=== PATIENT | female | born 1965 | race Caucasian/White ===

== ENCOUNTER → 2017-08-05 | Outpatient (CLI) | payer OTHER | LOC: CIMAGING 08:17 | PROVIDERS: ATTEND Nurse Practitioner | DX: D25.1 Intramural leiomyoma of uterus (principal) | CPT/HCPCS: 76856-PO ==

== ENCOUNTER → 2018-05-03 | Outpatient (CLI) | payer OTHER | LOC: FIMAGING 08:58 | PROVIDERS: ATTEND Nurse Practitioner | DX: Z12.31 Encounter for screening mammogram for malignant neoplasm of breast (principal) ==

== ENCOUNTER 2018-09-07 15:13 | Emergency (ER) | payer OTHER ==
[2018-09-07] MEDS ORDERED: ASPIRIN 81 MG CHEWABLE TAB PO ONE (15:42)
--- NOTE | 2018-09-07 15:46 | EDPHY ---
H & P Stated Complaint: CP Time Seen by Provider: 09/07/18 15:26 HPI/ROS: CHIEF COMPLAINT: Chest pain HISTORY OF PRESENT ILLNESS: Patient is a 53-year-old healthy female who comes to the emergency department after 4 days of chest pain type symptoms. She states originally it began with pain in her right wrist that she thought was maybe arthritis although she has never had arthritis before. It then spread to her armpits 3 days ago and over the last 2 days has also involved her chest. She describes it as a twinging sensation in her her armpits and a heaviness in her chest that tend to last for about an hour and then resolved spontaneously. She has several episodes each day. Does not correlate with exertion or eating or positioning or movement. No fevers. No sore throat. No shortness of breath. She reports a dry cough but states that is baseline since she moved to [place]. No GI symptoms. No heartburn. She does have a history of a patent foramen ovale. Severity: Moderate Modifying factors: None currently asymptomatic REVIEW OF SYSTEMS: Constitutional: denies: chills, fever, recent illness, recent injury EENTM: denies: blurred vision, double vision, nose congestion Respiratory: denies: cough, shortness of breath Cardiac: See HPI denies: irregular heart rate, lightheadedness, palpitations Gastrointestinal/Abdominal: denies: abdominal pain, diarrhea, nausea, vomiting, blood streaked stools Genitourinary: denies: dysuria, frequency, hematuria, pain Musculoskeletal: denies: joint pain, muscle pain Skin: denies: lesions, rash, jaundice, bruising Neurological: denies: headache, numbness, paresthesia, tingling, dizziness, weakness Hematologic/Lymphatic: denies: blood clots, easy bleeding, easy bruising Immunologic/allergic: denies: HIV/AIDS, transplant 10 systems reviewed and negative except as noted EXAM: GENERAL: Well-appearing, well-nourished and in no acute distress. HEAD: Atraumatic, normocephalic. EYES: Pupils equal round and reactive to light, extraocular movements intact, sclera anicteric, conjunctiva are normal. ENT: TMs normal, nares patent, oropharynx clear without exudates. Moist mucous membranes. NECK: Normal range of motion, supple without lymphadenopathy or JVD. LUNGS: Breath sounds clear to auscultation bilaterally and equal. No wheezes rales or rhonchi. HEART: Regular rate and rhythm without murmurs, rubs or gallops. ABDOMEN: Soft, nontender, normoactive bowel sounds. No guarding, no rebound. No masses appreciated. BACK: No CVA tenderness, no spinal tenderness, step-offs or deformities EXTREMITIES: Normal range of motion, no pitting or edema. No clubbing or cyanosis. No worsening in pain with movement of her wrist or arms. NEUROLOGICAL: Cranial nerves II through XII grossly intact. Normal speech, normal gait. 5/5 strength, normal movement in all extremities, normal sensation , normal reflexes PSYCH: Normal mood, normal affect. SKIN: Warm, dry, normal turgor, no visible rashes or lesions. Source: Patient, Family Exam Limitations: No limitations - Personal History Current Tetanus/Diphtheria Vaccine: Yes Current Tetanus Diphtheria and Acellular Pertussis (TDAP): Yes - Medical/Surgical History Hx Asthma: No Hx Chronic Respiratory Disease: No Hx Diabetes: No Hx Cardiac Disease: No Hx Renal Disease: No Hx Cirrhosis: No Hx Alcoholism: No Hx HIV/AIDS: No Hx Splenectomy or Spleen Trauma: No Other PMH: PFO - Family History Significant Family History: No pertinent family hx - Social History Smoking Status: Never smoked Alcohol Use: Sober Drug Use: None Constitutional: Initial Vital Signs Temperature (C) 37.1 C 09/07/18 15:17 Heart Rate 99 09/07/18 15:17 Respiratory Rate 16 09/07/18 15:17 Blood Pressure 166/111 H 09/07/18 15:17 O2 Sat (%) 97 09/07/18 15:17 O2 Delivery Mode Room Air Allergies/Adverse Reactions: No Known Allergies Allergy (Unverified 09/07/18 15:17) Home Medications: Medication Instructions Recorded Bcp 09/07/18 Medical Decision Making - Diagnostics EKG Interpretation: An EKG obtained and was read and documented in trace view. Please see trace view for full reading and report. Sinus rhythm, no acute ischemic changes Imaging Results: Imaging Impressions Chest X-Ray 09/07/18 15:24 Impression: Normal. Imaging: Discussed imaging studies w/ tobacco stripper hand Radiologist ED Course/Re-evaluation: 4:30 p.m. We discussed the lab and imaging results. The patient is very reassured. She is still asymptomatic. I offered observation and repeat troponin but she declines. She would prefer to go home. I will refer her to Cardiology. Engaged her and her partner in shared decision making process. Differential Diagnosis: Partial list of the Differential diagnosis considered include but were not limited to; acute coronary disease, muscular pain, anxiety, GERD and although unlikely based on the history and physical exam, I also considered PE, pneumothorax, pneumonia, dissection, aneurysm. I discussed these differential diagnoses and the plan with the patient as well as the usual and expected course. The patient understands that the diagnosis is provisional and that in medicine we are not always correct and that further workup is often warranted. Usual and customary warnings were given. All of the patient's questions were answered. The patient was instructed to return to the emergency department should the symptoms at all worsen or return, otherwise to followup with the physician as we discussed. - Data Points Laboratory Results: Laboratory Results 09/07/18 Unknown 09/07/18 15:40 09/07/18 09/07/18 09/07/18 Unknown 15:48 15:40 WBC 5.84 10^3/uL 10^3/uL (3.80-9.50) RBC 4.46 10^6/uL 10^6/uL (4.18-5.33) Hgb 13.5 g/dL g/dL (12.6-16.3) Hct 39.3 % % (38.0-47.0) MCV 88.1 fL fL (81.5-99.8) MCH 30.3 pg pg (27.9-34.1) MCHC 34.4 g/dL g/dL (32.4-36.7) RDW 12.1 % % (11.5-15.2) Plt Count 267 10^3/uL 10^3/uL (150-400) MPV 9.3 fL fL (8.7-11.7) Neut % (Auto) 61.7 % % (39.3-74.2) Lymph % (Auto) 30.8 % % (15.0-45.0) [place] % (Auto) 6.8 % % (4.5-13.0) Eos % (Auto) 0.5 % L % (0.6-7.6) Baso % (Auto) 0.2 % L % (0.3-1.7) Nucleat RBC Rel Count 0.0 % % (0.0-0.2) Absolute Neuts (auto) 3.60 10^3/uL 10^3/uL (1.70-6.50) Absolute Lymphs (auto) 1.80 10^3/uL 10^3/uL (1.00-3.00) Absolute Monos (auto) 0.40 10^3/uL 10^3/uL (0.30-0.80) Absolute Eos (auto) 0.03 10^3/uL 10^3/uL (0.03-0.40) Absolute Basos (auto) 0.01 10^3/uL L 10^3/uL (0.02-0.10) Absolute Nucleated RBC 0.00 10^3/uL 10^3/uL (0-0.01) Immature Gran % 0.0 % % (0.0-1.1) Immature Gran # 0.00 10^3/uL 10^3/uL (0.00-0.10) PT INR APTT D-Dimer Sodium Potassium Chloride Carbon Dioxide Anion Gap BUN Creatinine Estimated GFR Glucose Calcium Total Bilirubin Conjugated Bilirubin Unconjugated Bilirubin AST ALT Alkaline Phosphatase Creatine Kinase CK-MB (CK-2) Fraction POC Troponin I 0.00 ng/mL ng/mL (0.00-0.08) Total Protein Albumin Lipase Beta HCG, Qual NEGATIVE 09/07/18 09/07/18 15:40 15:40 WBC RBC Hgb Hct MCV MCH MCHC RDW Plt Count MPV Neut % (Auto) Lymph % (Auto) [place] % (Auto) Eos % (Auto) Baso % (Auto) Nucleat RBC Rel Count Absolute Neuts (auto) Absolute Lymphs (auto) Absolute Monos (auto) Absolute Eos (auto) Absolute Basos (auto) Absolute Nucleated RBC Immature Gran % Immature Gran # PT 13.6 SEC SEC (12.0-15.0) INR 1.02 (0.83-1.16) APTT 29.6 SEC SEC (23.0-38.0) D-Dimer 0.33 ug/mLFEU ug/mLFEU (0.00-0.50) Sodium 138 mEq/L mEq/L (135-145) Potassium 4.1 mEq/L mEq/L (3.3-5.0) Chloride 102 mEq/L mEq/L (97-110) Carbon Dioxide 25 mEq/l mEq/l (22-31) Anion Gap 11 mEq/L mEq/L (6-14) BUN 10 mg/dL mg/dL (7-23) Creatinine 0.7 mg/dL mg/dL (0.6-1.0) Estimated GFR > 60 Glucose 110 mg/dL H mg/dL (70-100) Calcium 10.1 mg/dL mg/dL (8.5-10.4) Total Bilirubin 1.2 mg/dL mg/dL (0.1-1.4) Conjugated Bilirubin 0.1 mg/dL mg/dL (0.0-0.5) Unconjugated Bilirubin 1.1 mg/dL mg/dL (0.0-1.1) AST 29 IU/L IU/L (14-46) ALT 38 IU/L IU/L (9-52) Alkaline Phosphatase 57 IU/L IU/L (38-126) Creatine Kinase 60 IU/L IU/L (0-156) CK-MB (CK-2) Fraction 1.05 ng/mL ng/mL (0.00-4.55) POC Troponin I Total Protein 7.8 g/dL g/dL (6.3-8.2) Albumin 4.7 g/dL g/dL (3.5-5.0) Lipase 105 IU/L IU/L (23-300) Beta HCG, Qual Medications Given: Discontinued Medications Aspirin (Aspirin) 324 mg PO EDNOW ONE Stop: 09/07/18 15:43 Last Admin: 09/07/18 16:10 Dose: 324 mg Point of Care Test Results: Chemistry 09/07/18 15:48 POC Troponin I 0.00 ng/mL ng/mL (0.00-0.08) Departure - Departure Disposition: Home, Routine, Self-Care Clinical Impression: Chest pain Qualifiers: Chest pain type: unspecified Qualified Code(s): R07.9 - Chest pain, unspecified Condition: Fair Instructions: Chest Pain (ED) Referrals: Marcella Siddiqui NP [Primary Care Provider] - As per Instructions Amanda Marks MD [Medical Doctor] - 2-3 days, call for appt.
--- NOTE | 2018-09-07 15:50 | CPEKG ---
Test Reason : OPEN Blood Pressure : / mmHG Vent. Rate : 083 BPM Atrial Rate : 082 BPM P-R Int : 164 ms QRS Dur : 109 ms QT Int : 371 ms P-R-T Axes : 078 -09 061 degrees QTc Int : 436 ms Sinus rhythm Probable anteroseptal infarct, old Confirmed by Marcos Irving ([id number]) on 09/07/2018 3:49:39 PM Referred By: Confirmed By:Marcos Irving
[2018-09-07 16:02] LABS: PLATELET COUNT 267 10^3/uL (150-400)
[2018-09-07 16:13] LABS: CREATINE KINASE 60 IU/L (0-156)
[2018-09-07 16:14] LABS: INR 1.02 (0.83-1.16); PROTIME(PATIENT) 13.6 SEC (12.0-15.0)
[2018-09-07 16:59] VITALS: BP 133/87
== END 2018-09-07 16:58 | disposition home or self-care (01) ==
DX: R07.9 Chest pain, unspecified (principal)
CPT/HCPCS: 84484-PO

== ENCOUNTER → 2018-09-09 | Outpatient (CLI) | payer OTHER ==
[~2018-09-09] MED LIST: IOPAMIDOL (ISOVUE 370) 100 ML BTL IV ONE; LORazepam 0.5 MG TAB PO ONE; METOPROLOL TARTRATE 25 MG TAB PO ONE; METOPROLOL TARTRATE 5 MG/5 ML INJ ONE
== END ==
LOC: FIMAGING 13:10
PROVIDERS: ATTEND Internal Medicine Cardiovascular Disease
DX: R07.9 Chest pain, unspecified (principal); R06.02 Shortness of breath
CPT/HCPCS: Q9967

== ENCOUNTER 2018-09-12 12:31 | Observation (INO) | payer OTHER ==
[2018-09-12] MEDS ORDERED: ASPIRIN EC 325 MG TAB PO ONE ×2 (12:38→13:09)
[2018-09-12] MEDS ORDERED: DIAZEPAM 5 MG TAB PO ONE (12:38)
[2018-09-12] MEDS ORDERED: FAMOTIDINE 20 MG TAB PO ONE (12:38)
[2018-09-12] MEDS ORDERED: diphenhydrAMINE 25 MG CAP PO ONE ×2 (12:38→13:09)
[2018-09-12] MEDS ORDERED: NS 1,000 ML IV ONE (12:38)
[2018-09-12] MEDS ORDERED: DIAZEPAM 5 MG TAB ONE (13:09)
[2018-09-12] MEDS ORDERED: FAMOTIDINE 20 MG TAB ONE (13:09)
[2018-09-12 13:26] LABS: PLATELET COUNT 247 10^3/uL (150-400)
[2018-09-12 13:39] LABS: INR 1.03 (0.83-1.16); PROTIME(PATIENT) 13.7 SEC (12.0-15.0)
--- NOTE | 2018-09-12 13:52 | PDPROPOC ---
Sedation Plan of Care Sedation Plan of Care: vital signs stable, mental status noted, patient educated of risks, benefits, alternatives ASA Classification: ASA 2 Planned drugs: fentanyl, midazolam Mallampati Score: Class 2 Mallampati Reference Image: Patient passed 3-3-2 rule?: Yes
--- NOTE | 2018-09-12 13:53 | PDHPUP ---
History & Physical Update H&P update statement: This history and physical update is based on an assessment of the patient which was completed after admission or registration (within 24 hours), but prior to the surgery/procedure. H&P update: H&P reviewed & patient examined, no change in patient's condition since H&P completed (Pt with further episodes of chest pressure over the weekend. )
[2018-09-12] MEDS ORDERED: LIDOCAINE 1% 300 MG/30 ML SDV ONE (14:05)
[2018-09-12] MEDS ORDERED: fentaNYL 100 MCG/2 ML INJ ONE ×2 (14:05→14:47)
[2018-09-12] MEDS ORDERED: IOPAMIDOL (ISOVUE-370) 150 ML BTL IV ONE (14:06)
[2018-09-12] MEDS ORDERED: MIDAZOLAM 2 MG/2 ML VIAL ONE ×2 (14:06→14:47)
[2018-09-12] MEDS ORDERED: OXYCODONE/APAP 5/325 TAB PO PRN (15:19)
[2018-09-12] MEDS ORDERED: ONDANSETRON 4 MG/2 ML VIAL IVP PRN ×2 (15:19→22:30)
[2018-09-12] MEDS ORDERED: ATROPINE SULFATE 1 MG/10 ML SYR IVP PRN (15:19)
[2018-09-12] MEDS ORDERED: HYDROCODONE/APAP 5/325 TAB PO PRN (15:19)
[2018-09-12] MEDS ORDERED: NITROGLYCERIN 0.4 MG BTL SL PRN (15:19)
[2018-09-12] MEDS ORDERED: ATROPINE SULFATE 1 MG/10 ML SYR ONE (15:23)
[2018-09-12] MEDS ORDERED: ONDANSETRON DISINTEGRATING 4 MG TAB PO PRN (22:08)
--- NOTE | 2018-09-13 02:22 | CPIP ---
DATE OF PROCEDURE: 09/12/2018 PROCEDURE PERFORMED: Diagnostic left heart catheterization. INDICATION FOR LEFT HEART CATHETERIZATION: Symptoms consistent with unstable angina with 6/10 subste rnal chest pressure radiating to the right arm associated with shortness of breath lasting for approx imately 4 hours and resolving spontaneously. Attempts to do CT angiography were unsuccessful this pa st Wednesday, September 09, 2018, secondary to inability to obtain appropriate heart rate despite signific ant doses of metoprolol as well as Ativan. The patient had further symptoms of chest tightness and s hortness of breath over the weekend, prompting her to present for diagnostic left heart catheterizati on today. PROCEDURE: After informed consent was obtained for diagnostic as well as interventional left heart c atheterization, the patient was brought to the cardiac catheterization lab where she was prepped and draped in sterile fashion. Using 1% lidocaine, the right groin was anesthetized. Using the micropuncture modified Seldinger technique, a 6-Somali catheter was placed into the right c ommon femoral artery without complications. A JL4 catheter was used to take images of the left coron summer anatomy in multiple projections. An attempt to cannulate the right coronary artery with a JR4 catheter unsuccessful and we ultimately exchanged over a guidewire for a Rogelio right catheter. Rogelio right catheter cannulated the rig ht coronary artery. Images were obtained of the right coronary artery in multiple projections. Rogelio right catheter was exchanged over a guidewire for angled pigtail catheter. Angled pigtail c atheter was used to cross the aortic valve. Left ventriculogram was performed. LVEDP was assessed. Aortic valve gradient was assessed on pull-back. Angled pigtail catheter was removed over a guidewi re without complications. Images of the right common femoral site were obtained demonstrating appropriate place of the 6-Somali sheath. The patient's body habitus was not amenable to percutaneous closure and manual pressure was applied. FINDINGS: 1. Left main is short in caliber. It bifurcates into a left anterior descending and left circumflex coronary artery. There is no evidence of coronary disease within the left main. Left anterior desc ending artery demonstrates no evidence of coronary disease. There are multiple septal perforators wi thout evidence of coronary disease. There is a moderate size first diagonal branch without evidence of coronary disease. 2. The circumflex artery is free of coronary artery disease. There is a moderate size first obtuse marginal branch with no evidence of coronary disease. 3. There is a small ramus branch that trifurcate to the left main. There is no evidence of coronary disease within the ramus. 4. Right coronary artery is a dominant vessel that bifurcates into PDA and PLV branch. There is no evidence of coronary disease within the right coronary artery. HEMODYNAMICS: LVEF 65% to 70%. LVEDP 16 mmHg. Aortic valve gradient none. CONCLUSION: Normal coronary arteries. Normal left ventricular function. LVEDP 16 mmHg. PLAN: The patient will be brought back to [facility] for postop recovery with standard order set. The patient will be discharged later this evening. /[id number]/MODL
[2018-09-13 07:31] VITALS: BP 118/87
--- NOTE | 2018-09-13 08:58 | PDCARPN ---
Cardiology Progress Note Chief Complaint: Nausea Assessment/Plan: Assessment: -Chest pain -Normal Coronary arteries and LV function -Nausea and hypotension with standing after 6 hrs of bed rest, c/w orthostasis -Feels fine this am Plan: -Post LHC instructions reviewed -Call with update on how feeling -recommend trail of OTC Zantac for possible GERD 09/13/18 08:58 Subjective: Pt underwent LHC yesterday in the setting of non exertional sub sternal chest pressue and sob. Cors normal. EF 65-70%. She felt nauseated after getting up last evening when she was able to go home. As a result, she spent the night on [address]. She is feeling well this Am. No complaints. Right groin wihtout hematoma or ecchymosis. Distal pulses intact. Vitals stable. Tele demonstrates NSR with rare single PVC. Reviewed/Discussed With: family Objective: Vital Signs (8 Hrs) Temp Pulse Resp BP Pulse Ox 09/13/18 07:26 36.8 C 82 18 118/87 H 100 09/13/18 04:00 36.7 C 68 12 98/64 L 95 Intake/Output (24 Hrs) 09/12/18 09/13/18 09/14/18 05:59 05:59 05:59 Intake Total 400 Balance 400 Intake: Oral (ml) 400 Other: Weight 61.2 kg Intake Quantity Yes Sufficient Number of Voids Toilet 2 Result Diagrams: 09/12/18 13:10 09/12/18 13:10 - Physical Exam Ears, Nose, Mouth, Throat: moist mucous membranes Cardiovascular: other (Right groin without hematoma or ecchymosis. Distal pulses intact ) ICD10 Worksheet Patient Problems: Problems Problem Status Onset Nausea Acute - ICD10 Problem Qualifiers (1) Nausea
--- NOTE | 2018-09-13 10:59 | ASDISCHSUM ---
Discharge Information Plan Status:Home with No Needs Medically Cleared to Leave:09/12/2018 Discharge Date:09/13/2018 09:09 AM CM D/C Disposition:Home, Routine, Self-Care ADT D/C Disposition:Home, Routine, Self-Care Projected Discharge Date:09/13/2018 09:09 AM Transportation at D/C: Discharge Delay Reason: Follow-Up Date:09/13/2018 09:09 AM Discharge Slot: Final Diagnosis: Placement Information Patient Contact Information Contact Name:ALYSSIA Relationship:Life Partner Address:[address] [place] Work Phone: City:[place] Alternate Phone: [facility]/Zip Code:[place] [address] Email: Financial Information Financial Class:[employer] Primary Plan Desc:[employer] HMO OPEN ACC LOCAL Primary Plan Number:[id number] Secondary Plan Desc: Secondary Plan Number: Assessment Information Intervention Information
--- NOTE | 2018-09-14 22:33 | CPEKG ---
Test Reason : OPEN Blood Pressure : / mmHG Vent. Rate : 099 BPM Atrial Rate : 102 BPM P-R Int : 156 ms QRS Dur : 095 ms QT Int : 350 ms P-R-T Axes : 077 -30 061 degrees QTc Int : 450 ms Sinus rhythm Left axis deviation Anteroseptal infarct Confirmed by Carlitos Song ([id number]) on 09/14/2018 10:33:09 PM Referred By: Confirmed By:Carlitos Song
--- NOTE | 2018-09-16 05:41 | GDS ---
INDICATION FOR ADMISSION: Left heart catheterization secondary to chest pain. HOSPITALIZATION: The patient is a pleasant 53-year-old female who I had seen in the office last week with complaints of 8/10 substernal chest pressure lasting for hours and resolving spontaneously, ass ociated shortness of breath. Attempt at CT angiography was unsuccessful secondary to inability to ob tain heart rate in the 50s. She presented Wednesday, September 12, 2018, with ongoing complaints of chest pain, shortness of breath, prompting diagnostic left heart catheterization. Left heart catheterization demonstrated normal coronary arteries and normal left ventricular function . There were no postoperative complications. She had been scheduled for discharge at 9:30 p.m. afte r completing her recovery protocol. However, she developed some nausea, prompting her to remain hosp italized for further monitoring. On the morning of September 13, 2018, she was feeling well with no further complications. Groin site w as stable without hematoma or ecchymosis and she was discharged to home. PLAN: 1. Patient be discharged home. 2. Patient will contact my office on and update me on how she is feeling. We will plan to follow up with patient after she returns from upcoming trip to [place] with her family . /[id number]/MODL
== END 2018-09-13 09:09 | disposition home or self-care (01) ==
LOC: FCATH 12:31 → F2W 16:38
PROVIDERS: ADMIT Internal Medicine Cardiovascular Disease; ATTEND Internal Medicine Cardiovascular Disease
PROC: 4A023N7 Measurement of Cardiac Sampling and Pressure, Left Heart, Percutaneous Approach (ICD-10-PCS; principal; 2018-09-12)
DX: R07.9 Chest pain, unspecified (principal); R11.0 Nausea; E55.9 Vitamin D deficiency, unspecified; Z98.890 Other specified postprocedural states; Z85.828 Personal history of other malignant neoplasm of skin
CPT/HCPCS: 93005; 93458; G0378; J0461; J1200; J1644; J2250; J3010; Q9967

== ENCOUNTER → 2018-11-24 | Outpatient (CLI) | payer OTHER | LOC: FIMAGING 09:11 | PROVIDERS: ATTEND Nurse Practitioner | DX: M79.622 Pain in left upper arm (principal); N64.4 Mastodynia ==